=== PATIENT | female | born 1945 | race Caucasian/White ===

== ENCOUNTER → 2017-10-21 | Outpatient (CLI) | payer OTHER ==
[~2017-10-21] MED LIST: ASPI81CH PO; ASPI81EC PO; Bactrim Ds Tab1 EACH PO; CEPH500 PO; ESOM20 PO; FLAX PO; FURO40 PO; HYDCHL25 PO; LISI10 PO; METF500 PO; METO50ER; METO50ER PO; NAPR500 PO; OMEP20ER PO; POTA20PAC PO; Pyridium200 MG PO; ROSU5 PO; TRAZ50 PO; UBID100 PO; VITS
== END ==
LOC: LAB EV 09:37
DX: N39.0 Urinary tract infection, site not specified (principal)
CPT/HCPCS: 87086

== ENCOUNTER 2019-07-19 07:46 | Day surgery (SDC) | payer OTHER ==
[~2019-07-19] VITALS: Ht 152.4 cm; Wt 66.7 kg
--- NOTE | 2019-07-19 08:21 | NUR ---
07/19/19 0821 Sultana Bush 1 TRY HAND RIGHT VEIN BLEW 2 TRY WRIST RIGHT VEIN BLEW 3 TRY HAND RIGHT GOOD
[2019-07-23] MEDS ORDERED: LOSA25 PO (15:42)
[2019-07-23] MEDS ORDERED: GABA300 PO (15:42)
[2019-07-23] MEDS ORDERED: HYDCHL25 PO (15:42)
[2019-07-23] MEDS ORDERED: METO50ER PO (15:42)
[2019-07-23] MEDS ORDERED: METFORMIN HCL1000 MG PO (15:44)
[2019-07-23] MEDS ORDERED: OMEPRAZOLE20 MG PO (15:44)
[2019-07-23] MEDS ORDERED: ROSU5 PO (15:45)
[2019-07-23] MEDS ORDERED: Desyrel150 MG PO (15:47)
== END 2019-07-19 09:50 | disposition home or self-care (01) ==
LOC: ORSCSDS 07:46
PROVIDERS: Surgery
PROC: 0DB68ZX Excision of Stomach, Via Natural or Artificial Opening Endoscopic, Diagnostic (ICD-10-PCS; principal; 2019-07-19 09:00)
PROC: 0DB48ZX Excision of Esophagogastric Junction, Via Natural or Artificial Opening Endoscopic, Diagnostic (ICD-10-PCS; principal; 2019-07-19 09:00)
DX: K21.9 Gastro-esophageal reflux disease without esophagitis (principal); K44.9 Diaphragmatic hernia without obstruction or gangrene; K31.7 Polyp of stomach and duodenum; E11.9 Type 2 diabetes mellitus without complications; I10 Essential (primary) hypertension; E78.5 Hyperlipidemia, unspecified; E66.9 Obesity, unspecified; Z68.30 Body mass index [BMI] 30.0-30.9, adult; Z79.899 Other long term (current) drug therapy
CPT/HCPCS: 82947; 88305; 88342; J2704; J7120

== ENCOUNTER → 2019-07-24 | Outpatient (CLI) | payer OTHER ==
[~2019-07-24] MED LIST changes: +DOCU100 PO; +Desyrel150 MG PO; +GABA300 PO; +LOSA25 PO; +METFORMIN HCL1000 MG PO; +OMEPRAZOLE20 MG PO; +ONDA4ODT PO; +TRAM50 PO
== END | disposition home or self-care (01) ==
LOC: LAB 11:50 → LAB SHORT 11:50
DX: Z22.1 Carrier of other intestinal infectious diseases (principal); Z16.12 Extended spectrum beta lactamase (ESBL) resistance
CPT/HCPCS: 87081

== ENCOUNTER 2019-07-25 06:06 | Observation (INO) | payer OTHER ==
[~2019-07-25 06:06] MED LIST changes: -DOCU100 PO; -ONDA4ODT PO; -TRAM50 PO
--- NOTE | 2019-07-25 06:57 | NUR ---
History, Chart, Medications and Allergies reviewed before start of procedure. Lungs clear T/O to Auscultation. Patient confirms NPO status and agrees with scheduled surgery. Pre-Op teaching done. Pt verbalizes understanding. Patient reports completing Chlorhexadine shower X2 prior to admission to hospital.
--- NOTE | 2019-07-25 11:36 | NUR ---
07/25/19 1136 Amari Dunaway PROLONGED WAKE UP TIME AND EXTUBATION BEFORE LEAVING ROOM.
--- NOTE | 2019-07-25 16:45 | NUR ---
PT WAS FEELING SHAKY; BLOOD SUGAR CHECK COMPLETED; WNL.
--- NOTE | 2019-07-25 20:02 | NUR ---
SHIFT SUMMARY PT HAS DONE WELL POST OP. NPO EXCEPT SWABS UNTIL 1814. THEN SMALL AMOUNT ICE CHIPS GIVEN. PAIN CONTROLLED. GAUZE APPLIED TO [employer] FOR SCANT DRAINAGE. UP IN ROOM TO VOID.
[2019-07-26 05:08] LABS: BASOPHILS ABSOLUTE AUTO 0.01 K/mm3 (0.00-0.23); BASOPHILS PERCENT AUTO 0 % (0-2); EOSINOPHILS PERCENT AUTO 0 % (0-6); Hematocrit 33.3 % (33.0-51.0); Hemoglobin 11.1 g/dL (11.5-16.0); IMMATURE GRAN ABSOLUTE AUTO 0.03 K/mm3 (0.00-0.10); IMMATURE GRAN PERCENT AUTO 0 % (0-1); LYMPHOCYTES ABSOLUTE AUTO 1.87 K/mm3 (0.84-5.20); LYMPHOCYTES PERCENT AUTO 17 % (21-46); MONOCYTES ABSOLUTE AUTO 1.05 K/mm3 (0.16-1.47); MONOCYTES PERCENT AUTO 9 % (4-13); Mean Corpuscular HGB 30.4 pg (26.0-34.0); Mean Corpuscular HGB Conc 33.3 g/dL (31.5-36.5); Mean Corpuscular Volume 91 fL (80-100); NEUTROPHILS ABSOLUTE AUTO 8.18 K/mm3 (1.96-9.15); NEUTROPHILS PERCENT AUTO 73 % (41-73); Platelet Count 225 K/mm3 (150-400); RDW Coefficient Variation 12.8 % (11.7-14.2); RDW Standard Deviation 42.3 fL (35.1-46.3); Red Blood Cell Count 3.65 M/mm3 (3.80-5.20); White Blood Cell Count 11.14 K/mm3 (4.00-11.30)
[2019-07-26 05:25] LABS: Anion Gap 10 mmol/L (6-16); Blood Urea Nitrogen 14 mg/dL (8-24); Bun/Creatinine Ratio 18.3 (12.0-20.0); CO2, Blood 26 mmol/L (21-32); Calcium, Blood 8.2 mg/dL (8.5-10.1); Chloride, Blood 103 mmol/L (98-108); Creatinine, Blood 0.76 mg/dL (0.40-1.00); Glomerular Filtration Rate >60 (60-); Glucose, Blood 157 mg/dL (70-99); Potassium, Blood 3.5 mmol/L (3.5-5.5); Sodium, Blood 139 mmol/L (136-145)
--- NOTE | 2019-07-26 06:38 | NUR ---
POD 1. PT VSS T/O NIGHT. INCISIONS CDI. PT KIA ICE CHIPS AND SIPS OF WATER, NO C/O N/V, IS BELCHING, NO FLATUS YET. PAIN MGD PER EMAR W/REP RELIEF. PT AMB IN HALLS X3 W/SBA, KIA WELL. PT USING CALL LIGHT FOR ASSISTANCE, WILL CONT TO MONITOR UNTIL REP GIVEN TO ONCOMING RN.
--- NOTE | 2019-07-26 11:19 | NUR ---
DR PEREZ IN TO SEE PT.
[2019-07-26] MEDS ORDERED: DOCU100 PO ×2 (15:52)
[2019-07-26] MEDS ORDERED: TRAM50 PO ×2 (15:53)
[2019-07-26] MEDS ORDERED: ONDA4ODT PO ×2 (15:53)
--- NOTE | 2019-07-26 16:10 | NUR ---
discharged DC'D IV, CATHETER INTACT. REVIEWED DC PAPERWORK W/PT; VERBALIZED UNDERSTANDING. CALLED WILMA SCRIPT INTO [facility] PER PT REQUEST. PT LEFT UNIT IN WC W/POSSESSIONS AND DC PAPERWORK IN HAND ACCOMPANIED BY SPOUSE.
== END 2019-07-26 16:08 | disposition home or self-care (01) ==
LOC: ORSCMMR 06:06 → ORD 07:30 → ORSCMMR 08:30 → ORD 08:30 → SURS 11:17 → ORSCMMR 11:17 → SURS 12:26
PROVIDERS: ADMIT Surgery
PROC: 0DV44ZZ Restriction of Esophagogastric Junction, Percutaneous Endoscopic Approach (ICD-10-PCS; principal; 2019-07-25 07:30)
DX: K44.9 Diaphragmatic hernia without obstruction or gangrene (principal); K21.9 Gastro-esophageal reflux disease without esophagitis; G89.18 Other acute postprocedural pain; E11.9 Type 2 diabetes mellitus without complications; I10 Essential (primary) hypertension; E78.5 Hyperlipidemia, unspecified; G47.00 Insomnia, unspecified; Z90.49 Acquired absence of other specified parts of digestive tract; Z87.891 Personal history of nicotine dependence; Z88.8 Allergy status to other drugs, medicaments and biological substances; Z79.84 Long term (current) use of oral hypoglycemic drugs; Z79.899 Other long term (current) drug therapy
CPT/HCPCS: 36415; 80048; 82947; 85025; J0171; J0690; J1100; J1650; J2405; J2704; J2710; J3010; J7120

== ENCOUNTER → 2020-12-23 | Outpatient (CLI) | payer OTHER ==
[~2020-12-23] MED LIST changes: +DOCU100 PO; +ONDA4ODT PO; +TRAM50 PO
== END ==
LOC: LAB SHORT 14:04
DX: N39.0 Urinary tract infection, site not specified (principal)
CPT/HCPCS: 87086

== ENCOUNTER 2022-07-06 09:00 | Day surgery (SDC) | payer OTHER ==
[~2022-07-06] VITALS: Ht 152.4 cm; Wt 59.3 kg
== END 2022-07-06 10:58 | disposition home or self-care (01) ==
LOC: ORSCSDS 09:00
PROVIDERS: Surgery
PROC: 0DB48ZX Excision of Esophagogastric Junction, Via Natural or Artificial Opening Endoscopic, Diagnostic (ICD-10-PCS; principal; 2022-07-06 10:15)
DX: R13.10 Dysphagia, unspecified (principal); K29.70 Gastritis, unspecified, without bleeding; E11.9 Type 2 diabetes mellitus without complications; E78.5 Hyperlipidemia, unspecified; Z87.891 Personal history of nicotine dependence; Z79.899 Other long term (current) drug therapy
CPT/HCPCS: 88305; J2704; J7120

== ENCOUNTER → 2024-01-10 | Outpatient (CLI) | payer OTHER ==
[2024-01-11 00:45] LABS: Bacterial Vaginosis PCR Negative (NEGATIVE); Candida Group, PCR NOT DETECTED (NOT DETECT); Candida glabrata-krusei, PCR NOT DETECTED (NOT DETECT)
== END | disposition home or self-care (01) ==
LOC: LAB SHORT 18:26 → LAB 18:26
PROVIDERS: Physician Assistant
DX: N89.8 Other specified noninflammatory disorders of vagina (principal); R82.998 Other abnormal findings in urine
CPT/HCPCS: 87086; 87481; 87661; 87801

== ENCOUNTER → 2024-12-14 | Outpatient (CLI) | payer OTHER | END | disposition home or self-care (01) | LOC: LAB 14:08 → LAB SHORT 14:08 | DX: B85.2 Pediculosis, unspecified (principal); N89.8 Other specified noninflammatory disorders of vagina | CPT/HCPCS: 88305 ==

== ENCOUNTER → 2025-07-18 | Outpatient (CLI) | payer OTHER | LOC: LAB SHORT 09:39 → LAB 09:39 | DX: R82.998 Other abnormal findings in urine (principal) | CPT/HCPCS: 87086 ==